=== PATIENT | female | born 1950 | race Caucasian/White ===

== ENCOUNTER 2023-07-22 06:56 | Day surgery (SDC) | payer MEDICARE, BC, SELFPAY ==
[2023-07-22] VITALS (29 sets, daily range): BP systolic 104–155; BP diastolic 56–92; PULSE 54–73; RESP 16–20; TEMP 35.8–37.2; O2SAT 89–97; BMI 39.6
[2023-07-22] MEDS: LACTATED RINGERS 1000 ML 1,000 ML 100 ML IV (07:30)
--- NOTE | 2023-07-22 07:30 | XR_ITS ---
Patient: ABRAHAM TOLEDO Facility:?[facility] Patient ID:?[id number] Site Patient ID:?[id number]. Site :?[id number] Study:?XRay-Knee Left POST OP-07/22/2023 12:05:46 PM Ordering Physician:TOSHIA Final Report: Indication: Postop Technique: Two views right knee Findings/Impression: Hardware from a right total knee arthroplasty is in satisfactory position. Bone alignment is normal. No sign of acute fracture. Postop changes are within normal limits. Dictated by Leonidas Ennis MD @ 07/22/2023 12:34:30 PM Signed by:?Leonidas Ennis MD @07/22/2023 12:34:30 PM (Electronic Signature)
[2023-07-22] MEDS: OXYCODONE (CR) 10 MG TAB.ER.12H PO (07:35)
[2023-07-22] MEDS: ACETAMINOPHEN 500 MG TABLET 1000 MG PO ×3 (07:35→20:52)
[2023-07-22] MEDS: fentaNYL 100 MCG/2 ML inj IVP (08:14)
[2023-07-22] MEDS: MIDAZOLAM HCL 1 MG/ML inj IVP (08:14)
--- NOTE | 2023-07-22 08:15 | SUR.PREOP ---
TIME?OUT:?812 PT/Maggie Ibanez RN/Dr. Amandeep MDA?VERIFICATION?OF?SURGICAL?SITE left knee,?PROCEDURE,?AND?CONSENT OBTAINED?PRIOR?TO?INVASIVE?PROCEDURE.
--- NOTE | 2023-07-22 09:06 | W.PM.NB ---
Nerve Block Nerve Block Time Seen by Provider: 08:16 Date Seen: 07/22/23 Type of block requested by surgeon for post-operative analgesia: adductor canal Side: left Time out performed: Yes Verification of patient name: Yes Verification of date of : Yes Site marking: site marked Name of person performing procedure: Amandeep Continuous monitoring Was continuous monitoring of O2 sat, B/P, cardiac monitor technician, recorded every 15 minutes?: Yes Procedure Checklist: sterile prep, needles and gloves Ultrasound guided. Images saved: Yes Medications given in 5ml increments after negative aspiration: Ropivicaine %: 0.5 mL: 20 Needle gauge: 20 Decadron (mg): 10 Precedex (mcg): 25 Patient tolerated procedure well: Yes Additional comments: Needle noted adjacent to nerve Block Charges Block Charge (with Pro Fee): Femoral Nerve Use of Ultrasound Machine for Block: Yes- US Guidance/pain block
--- NOTE | 2023-07-22 09:07 | W.PM.NB ---
Nerve Block Nerve Block Time Seen by Provider: 08:16 Date Seen: 07/22/23 Type of block requested by surgeon for post-operative analgesia: geniculars Side: left Time out performed: Yes Verification of patient name: Yes Verification of date of : Yes Site marking: site marked Name of person performing procedure: Amandeep Continuous monitoring Was continuous monitoring of O2 sat, B/P, soil specialist, recorded every 15 minutes?: Yes Procedure Checklist: sterile prep, needles and gloves Medications given in 5ml increments after negative aspiration: Ropivicaine %: 0.5 mL: 9 Needle gauge: 25 Patient tolerated procedure well: Yes Block Charges Block Charge (with Pro Fee): Genicular Nerve Block Use of Ultrasound Machine for Block: No
--- NOTE | 2023-07-22 09:07 | W.ANESCHARGE ---
Anesthesia Charges Start Date/Time Anesthesia Start Date: 07/22/23 Anesthesia Start Time: 09:11 Stop Date/Time Anesthesia Stop Date: 07/22/23 Anesthesia Stop Time: 11:46 Summary Extremes of Age - Over 70 or under 1: MDA
--- NOTE | 2023-07-22 09:24 | W.PM.H&PU ---
History & Physical Update History & Physical Update H&P Reviewed and patient assessed: No changes noted
[2023-07-22] MEDS: CEFAZOLIN 2 GM in 0.9 % SODIUM CHLORIDE Mini-bag 100 ML IVPB ×3 (09:25→23:05)
[2023-07-22] MEDS: TRANEXAMIC ACID 100 MG/ML INJ 1000 MG IV (09:25)
--- NOTE | 2023-07-22 11:13 | P.ORPRC_ITS ---
Procedure Note Date of procedure: 07/22/23 Procedure: PREOPERATIVE DIAGNOSIS: 1. Left knee osteoarthritis, primary, severe 2. Morbid obesity-BMI 39.7 POSTOPERATIVE DIAGNOSIS: 1. Left knee osteoarthritis, primary, severe 2. Morbid obesity-BMI 39.7 PROCEDURE: 1. Left total knee arthroplasty (subvastus approach) - modifier 22 (33% at a time to this case due to increased body mass as well as very soft bone requiring stemmed tibial component which added time and preparation and needed more retractors and assistance for completion of the procedure safely). SURGEON: Javier Reyes MD. BASEBALL UMPIRE FOR [employer]: CHRISTINE Salinas - Of note, a skilled technical staff assistant was critical for this case to aid in patient positioning, tissue retraction, limb manipulation/positioning, and closure. ANESTHESIA: Spinal anesthetic EBL: 50ml IMPLANTS: DePuy J&J all cemented TKA - Attune PS femur size 7, size 6 stemmed tibia (30 mm length stem), 5 mm poly spacer, 38 mm patella TOURNIQUET: 90 min at 300 torr COMPLICATIONS: None evident INDICATIONS: The patient is a pleasant 72-year-old female who has experienced severe left knee pain and difficulty bearing weight. Workup included x-rays which revealed severe osteoarthrosis in the knee. Given the deformity, the dysfunction, and the pain, as well as the failure of nonoperative management, recommendation was made for surgery. FINDINGS: Full-thickness chondral loss diffusely throughout the medial and patellofemoral compartments. To a lesser degree lateral compartment. Degenerative meniscus pathology. Large effusion upon entering the joint. DESCRIPTION OF PROCEDURE: Following a thorough discussion of risks, benefits, and alternatives consent was obtained and the left knee was marked. The patient was brought to the operating room and placed supine on the operating table. Induction of anesthesia was undertaken. 2 g IV Ancef and 1 g tranexamic acid was administered within 1 hr of incision preoperatively. Proper time-out was performed identifying proper patient, site, procedure. The operative extremity was prepped and draped in the appropriate sterile fashion using ChloraPrep after the patient was positioned supine with all bony prominences well padded. A longitudinal, anterior, midline skin incision was made starting approximately 3cm proximal to the superior pole of the patella and advanced distal to the tibial tubercle. A median parapatellar arthrotomy was created. A medial subperiosteal sleeve was created with knife, yuen elevator and curved osteotome. The retropatellar fatpad was resected and the synovium in the suprapatellar pouch excised to visualize the anterior femoral cortex. Femoral preparation was performed via an intramedullary guide. Step drill allowed access into the femoral canal. The distal cutting guide was placed with 5? of valgus and 11 mm cut on the distal femur due to a 7-10 degree flexion contracture. Femur was sized using a posterior referencing guide in 3? of external rotation. This found have a best fit with the sizing noted above. The 4 in 1 cutting block was then placed, and the distal femur shaped accordingly. The box cut was then created and the trial implant inserted to confirm appropriate fit. We turned our attention to the proximal tibia. Extramedullary guide was utilized for cutting with the goal of being 90 degree cut from the mechanical axis of the tibia in the varus/valgus plane utilizing tibial crest as the primary alignment. Initially a 1 mm resection was performed from the medial tibial plateau. An additional 2 mm did require resection to achieve proper gaps. Ultimately, balancing was achieved in both flexion and extension in both varus and valgus. Of note, the bone was extremely soft and even the cortical rim was somewhat of an egg shell. As such, a tibial stem was added to aid in stability of the tibial implant, and this was also utilized given the increased patient's body mass 0 (BMI 39.7). The knee was able to achieve full extension as well comfortably. The patella was initially measured and found have a thickness of 26 mm. It was resected back to approximately 16 mm. It was sized to be a best fit with as noted above. This was drilled, trial placed. All trials were placed and found to have an excellent stability and balance. At this stage, trial implants were removed, the knee was thoroughly irrigated with normal saline, and the cement was mixed. After irrigation, the knee was thoroughly dried, and cement placed, with the real tibial and femoral implants placed along with the patella. Trial poly spacer was placed and confirmed to have excellent range of motion and full extension, and the real poly spacer opened and inserted. All extra cement was removed, and a 3 min Betadine soak performed. Finally, a final irrigation round with normal saline was performed. Closure performed with 0 PDS and #0 Stratafix for the quad tendon/retinaculum. 2-0 Vicryl/Stratafix for the subcutaneous and 4-0 Monocryl for subcuticular closure. Dressings were applied and the patient was awoken from anesthesia after the tourniquet deflated and transferred the PACU in stable condition. A skilled technical staff assistant was critical for this case to aid in patient positioning, ti ssue retraction, bone exposure, limb manipulation/positioning, patient safety, and closure. * again, 33% at a time to this case due to increased body mass as well as very soft bone requiring stemmed tibial component which added time and preparation and needed more retractors and assistance for completion of the procedure safely PLAN: 1. Weight bear as tolerated operative extremity. 2. 23 hr perioperative antibiotics. 3. Ice. 4. PT/OT consults for ambulation assistance/mobility education. 5. Social work consult for discharge planning. 6. DVT prophylaxis with at SCDs, Vahe Hose, and aspirin twice daily.
--- NOTE | 2023-07-22 11:38 | SUR.OPER ---
Skin under tourniquet looks bruised on medial thigh
[2023-07-22] MEDS: fentaNYL 100 MCG/2 ML inj 50 MCG IVP ×2 (11:53→12:08)
--- NOTE | 2023-07-22 11:54 | W.ANESCHARGE ---
Anesthesia Charges Start Date/Time Anesthesia Start Date: 07/22/23 Anesthesia Start Time: 09:11 Stop Date/Time Anesthesia Stop Date: 07/22/23 Anesthesia Stop Time: 11:46
--- NOTE | 2023-07-22 11:58 | SUR.PHASEI ---
xray here for ap/lat left knee
--- NOTE | 2023-07-22 13:30 | PM.IMCN1 ---
Date of Consult Patient: [facility] Patient Consult date: 07/22/23 Requesting Physician: Orthopedics Primary Care Provider: Enid Carr MD Consult Narrative Reason for consult: Medical management Narrative: Kaylen Reilly is a 72 year old female past medical history significant for osteoarthritis, lumbar degenerative disc disease, obesity, GERD, hyperlipidemia, neuropathy is POD#0 s/p left total knee arthroplasty. Postoperative pain is currently well controlled. Has been struggling with her low back pain and unable to get comfortable. Receive fentanyl in the PACU and no has some mild dizziness which is improving. Also had some mild nausea which has resolved. Tolerating sips and chips. There have been no perioperative complications or nursing concerns reported. Estimated total blood loss documented as 50 ml. Updated and reviewed the active medical problems, past medical history, past surgical history, social history, allergies and medications in our electronic EMR. Review of Systems Narrative: REVIEW OF SYSTEMS: Complete review of systems performed and negative unless otherwise stated in HPI or below. PFSH [facility] Medical History (Updated 07/22/23 @ 14:24 by Nelia Silva PA-C) Lower extremity neuropathy ?G57.90 - Unspecified mononeuropathy of unspecified lower limb (ICD-10) Hyperlipidemia ?E78.5 - Hyperlipidemia, unspecified (ICD-10) Obesity ?E66.9 - Obesity, unspecified (ICD-10) Neuropathy of both feet ?G57.93 - Unspecified mononeuropathy of bilateral lower limbs (ICD-10) Endometriosis ?N80.9 - Endometriosis, unspecified (ICD-10) GERD (gastroesophageal reflux disease) ?K21.9 - Gastro-esophageal reflux disease without esophagitis (ICD-10) Surgical History History of bilateral oophorectomy ?Z90.722 - Acquired absence of ovaries, bilateral (ICD-10) History of breast biopsy ?Z98.890 - Other specified postprocedural states (ICD-10) S/P right knee arthroscopy (~1989) ?Z98.890 - Other specified postprocedural states (ICD-10) S/P appendectomy ?Z90.49 - Acquired absence of other specified parts of digestive tract (ICD-10) 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) ?Z96.642 - Presence of left artificial hip joint (ICD-10) Social History What is your current living situation?: I presently have a place to live Problems where you live: no known problems Smoking Status: Never smoker Do you use any of these nicotine containing products: None How often do you have a drink containing alcohol: never AUDIT-C Alcohol total score: 0 Non-prescribed substance use: denies use Caffeine: Yes (pepsi daily) How often does anyone, including family, friends and others, physically hurt you: never How often does anyone, including family, friends and others, insult or talk down to you: never How often does anyone, including family, friends and others, threaten you with harm: never How often does anyone, including family, friends and others, scream or curse at you: never service: No Meds Home Medications and Allergies Home Medications Medication Instructions Recorded Confirmed Type atorvastatin 40 mg tablet 40 mg PO HS 10/30/22 07/22/23 History magnesium oxide 400 mg (241.3 mg 400 mg PO DAILY 10/30/22 07/22/23 History magnesium) tablet naproxen sodium 220 mg capsule 220 mg PO BID PRN 10/30/22 07/22/23 History (Aleve) pantoprazole 40 mg tablet,delayed 40 mg PO DAILY 04/23/23 07/22/23 History release pregabalin 150 mg capsule (Lyrica) 150 mg PO BID 04/23/23 07/22/23 History Allergies Allergy/AdvReac Type Severity Reaction Status Date / Time No Known Drug Allergies Allergy Verified 07/22/23 07:14 Exam Narrative: Exam Narrative: PHYSICAL EXAM General: Pleasant, conversant, NAD HEENT: Normocephalic, atraumatic, sclera white, EOMI, oral mucosa moist Cardiovascular: RRR, S1S2. No pitting edema Pulmonary: CTA bilaterally without rhonchi, rales, expiratory wheezes. No dyspnea Abdominal: Soft, nondistended, NTTP Neurological: Alert, answering questions appropriately, cranial nerves intact, no focal findings Extremities: No gross joint deformity or swelling. Postoperative dressing in place, dry. Neurovascularly intact Skin: Warm, dry. Const: Vital Signs, click to edit/add: Vital Signs - 24 hr 07/22/23 08:03 07/22/23 08:15 07/22/23 08:20 Temperature 98.3 F Pulse Rate 68 71 64 Respiratory Rate 16 16 16 Blood Pressure 127/69 144/72 H 141/70 H Pulse Oximetry 97 97 93 Oxygen Delivery Me thod Room Air Nasal Cannula Nasal Cannula Oxygen Flow Rate 2 2 07/22/23 08:30 07/22/23 08:45 07/22/23 11:42 Temperature 98.3 F 97.5 F L Pulse Rate 62 58 L 69 Respiratory Rate 16 16 16 Blood Pressure 112/60 104/69 135/71 Pulse Oximetry 97 96 94 Oxygen Delivery Me thod Nasal Cannula Nasal Cannula Room Air Oxygen Flow Rate 2 2 07/22/23 11:45 07/22/23 11:50 07/22/23 11:55 Temperature Pulse Rate 64 63 61 Respiratory Rate 16 16 16 Blood Pressure 123/67 136/86 135/74 Pulse Oximetry 94 95 95 Oxygen Delivery Me thod Room Air Room Air Room Air Oxygen Flow Rate 07/22/23 12:00 07/22/23 12:05 07/22/23 12:10 Temperature Pulse Rate 67 66 55 L Respiratory Rate 16 16 16 Blood Pressure 130/77 142/76 H 138/81 Pulse Oximetry 95 93 95 Oxygen Delivery Me thod Room Air Room Air Room Air Oxygen Flow Rate 07/22/23 12:15 Temperature 97.7 F Pulse Rate 54 L Respiratory Rate 16 Blood Pressure 134/91 H Pulse Oximetry 95 Oxygen Delivery Me thod Room Air Oxygen Flow Rate Assessment and Plan Assessment and plan (1) Osteoarthritis of left knee: Problem comment: -POD#0 s/p L VICTORIANO -perioperative management including pain management and anticoagulation per Orthopedic surgery -encourage postoperative pulmonary hygiene -PT OT consults -plan to discharge home with spouse tomorrow Status: Acute (2) Lumbar degenerative disc disease: Problem comment: most severe at L5-S1 -pain management to include ice and/or heat, lidocaine patch, Tylenol, narcotics p.r.n.. Repositioning, ambulating when able Status: Acute (3) GERD (gastroesophageal reflux disease): Problem comment: -PPI Status: Acute (4) Hyperlipidemia: Problem comment: -statin Status: Acute (5) Lower extremity neuropathy: Problem comment: -Lyrica Status: Acute Plan Hospital medicine team will sign off. Please contact our service with any questions or concerns. Total Time Spent Total Time Spent: Total time spent caring for the patient today was 45 minutes. This includes time spent for the visit reviewing the chart, time spent during the visit, time spent after the visit and documentation and planning in coordination of care.
[2023-07-22] MEDS: LIDOCAINE 5% PATCH 1 PATCH TRANSDERMA (14:26)
[2023-07-22] MEDS: ONDANSETRON 2 MG/ML inj 4 MG IVP (14:26)
[2023-07-22] MEDS: OXYCODONE 5 MG TABLET PO ×2 (16:07→23:11)
--- NOTE | 2023-07-22 19:42 | PC.NURSE ---
shift note: pt to rm 256 via bed. pt states chronic back pain 07/20 upon arrival. pt repositioned intermittently to assist with lower back pain. pt up to recliner with Phy therapist this afternoon. drsg to lt l/e c/d/i with active ice in place. PP+ bilat. post op vss stable. pt voided x3. LS clr. IS to 2500. IV patent.
[2023-07-22] MEDS: SENNOSIDES 1 TAB TABLET 2 TAB PO (20:52)
[2023-07-22] MEDS: PREGABALIN 75 MG CAPSULE 150 MG PO (20:53)
[2023-07-22] MEDS: ATORVASTATIN CALCIUM 40 MG TABLET PO (20:53)
[2023-07-22] MEDS: ASPIRIN 81 MG TABLET EC PO (20:53)
[2023-07-23] MEDS: ACETAMINOPHEN 500 MG TABLET 1000 MG PO ×2 (01:22→08:39)
[2023-07-23] MEDS: OXYCODONE 5 MG TABLET PO ×3 (01:22→10:54)
[2023-07-23 01:31] VITALS: BP 136/65; PULSE 87; RESP 20; TEMP 36.6; O2SAT 93
--- NOTE | 2023-07-23 04:59 | PC.NURSE ---
[id number]: Patient pleasant and cooperative. Walk halls x2. Rates pain 4-6/10 with PRN Oxycodone for relief. Denies N/V. Active ice to L. knee. Dressing C/D/I. CMS intact. Eating and voiding.
[2023-07-23 06:26] LABS: Hematocrit 37.9 % (33.0-51.0); Hemoglobin* 12.1 gm/dL (12.0-16.0); Immature Granulocytes Pct Auto 0.1 %; Lymphocytes Percent Auto 7.3 % (20-44); Mean Corpuscular HGB Conc 32 gm/dL (32-36); Mean Corpuscular Hemoglobin 30 pg (26-34); Mean Corpuscular Volume 92 fL (80-100); Monocytes Percent Auto 10.4 % (0.0-11.0); Neutrophils Percent Auto 82.2 % (42.0-72.0); Platelet Count* 211 K/uL (140-440); RDW Coefficient of Variation % 12.3 % (11.5-15.5); White Blood Count* 12.02 K/uL (4.50-11.00)
[2023-07-23] MEDS: OMEPRAZOLE 20 MG CAPSULE DR 40 MG PO (06:28)
[2023-07-23 06:31] LABS: Slide Review Reflex No
[2023-07-23 06:37] LABS: Potassium* 4.4 mmol/L (3.6-5.1); Sodium* 137 mmol/L (135-149)
[2023-07-23 06:40] LABS: Blood Urea Nitrogen* 19 mg/dL (7-30); Creatinine* 0.8 mg/dL (0.5-1.5); Est. Creatinine Clearance* 52.05; Estimated Glomerular Filt Rate 79 ml/min
[2023-07-23 07:00] VITALS: O2SAT 95
[2023-07-23] MEDS: CEFAZOLIN 2 GM in 0.9 % SODIUM CHLORIDE Mini-bag 100 ML IVPB (07:00)
[2023-07-23] MEDS: PREGABALIN 75 MG CAPSULE 150 MG PO (08:39)
[2023-07-23] MEDS: MAGNESIUM OXIDE 400 MG TABLET PO (08:39)
[2023-07-23] MEDS: ASPIRIN 81 MG TABLET EC PO (08:39)
[2023-07-23 08:42] VITALS: BP 108/49; PULSE 64; RESP 18; TEMP 36.6; O2SAT 95
[2023-07-23] MEDS: SENNOSIDES 1 TAB TABLET 2 TAB PO (09:25)
--- NOTE | 2023-07-23 12:25 | PM.ORPN ---
Subjective Subjective Date Seen: 07/23/23 Principal diagnosis: Status postop day 1 left total knee arthroplasty Interval history: Patient reports feeling quite dizzy. Denies photophobia, head spinning, vertigo, ear pain, sinus pain, or nausea/vomiting. Mild headache. The symptoms of dizziness started after her 10 mg oxycodone provide this morning around 0630 (07/23/2023). Pain managed with scheduled and PRN medications, ice. DVT prophylaxis: 81 mg aspirin by mouth twice daily, bilateral knee high Vahe stockings, SCDs, walking. Denies fevers, chills, aches, N/V, CP, SOB/VITALE. She denies being lightheaded. Ortho Exam Narrative Exam Narrative: -Patient appears comfortable; no apparent acute distress. She appears irritated with the dizziness. -Alert and oriented times 3 -Operative knee mildly swollen; soft tissues supple; no ecchymosis; no erythematous streaking Warmth appropriate -Surgical dressing clean, dry, intact; no drainage -Bilateral calfs soft; no significant swelling, edema, tenderness, erythema, discoloration, warmth, or palpable cords -2+ DP/PT pulses, intact dermatomes and myotomes distally (5/5 strength) Const Vital Signs, click to edit/add: Vital Signs - 24 hr 07/22/23 12:30 07/22/23 12:35 07/22/23 12:45 Temperature 96.5 F L 96.5 F L 96.5 F L Pulse Rate 61 62 Pulse Rate [Pulse Oximeter] Respiratory Rate 16 16 16 Blood Pressure 145/78 H 154/80 H Blood Pressure [Right Arm] 145/78 H Pulse Oximetry 93 93 92 Oxygen Delivery Method Room Air Room Air Room Air Oxygen Flow Rate 07/22/23 13:00 07/22/23 13:15 07/22/23 13:30 Temperature 96.5 F L 96.7 F L 96.5 F L Pulse Rate 62 59 L 59 L Pulse Rate [Pulse Oximeter] Respiratory Rate 16 16 16 Blood Pressure 154/80 H 142/74 H 146/75 H Blood Pressure [Right Arm] Pulse Oximetry 91 97 92 Oxygen Delivery Method Room Air Room Air Room Air Oxygen Flow Rate 2 07/22/23 14:00 07/22/23 15:00 07/22/23 15:00 Temperature 96.5 F L 96.5 F L Pulse Rate 59 L 59 L Pulse Rate [Pulse Oximeter] Respiratory Rate 16 16 Blood Pressure 155/81 H 141/73 H Blood Pressure [Right Arm] Pulse Oximetry 91 91 89 Oxygen Delivery Method Room Air Room Air Oxygen Flow Rate 07/22/23 16:00 07/22/23 17:00 07/22/23 18:00 Temperature 96.5 F L 97.7 F 97.8 F Pulse Rate 59 L 59 L 62 Pulse Rate [Pulse Oximeter] Respiratory Rate 16 16 16 Blood Pressure 130/64 124/56 L 105/80 Blood Pressure [Right Arm] Pulse Oximetry 92 93 90 Oxygen Delivery Method Room Air Room Air Room Air Oxygen Flow Rate 07/22/23 19:31 07/22/23 20:21 07/22/23 22:06 Temperature 96.5 F L 98.9 F Pulse Rate 59 L Pulse Rate [Pulse Oximeter] 72 Respiratory Rate 16 20 Blood Pressure 142/92 H Blood Pressure [Right Arm] 128/62 Pulse Oximetry 91 95 95 Oxygen Delivery Method Room Air Nasal Cannula Oxygen Flow Rate 2.0 07/22/23 23:05 07/22/23 23:07 07/23/23 01:31 Temperature 98.3 F 98.3 F 97.8 F Pulse Rate Pulse Rate [Pulse Oximeter] 73 72 87 Respiratory Rate 18 20 Blood Pressure Blood Pressure [Right Arm] 118/58 L 136/65 Pulse Oximetry 95 93 Oxygen Delivery Method Room Air Room Air Oxygen Flow Rate 07/23/23 08:42 Temperature 98 F Pulse Rate Pulse Rate [Pulse Oximeter] 64 Respiratory Rate 18 Blood Pressure Blood Pressure [Right Arm] 108/49 L Pulse Oximetry 95 Oxygen Delivery Method Room Air Oxygen Flow Rate Assessment and Plan Assessment and plan (1) Status post left knee replacement: Problem details: POD 1 left TKA Status: Acute (2) Nonspecific dizziness: Problem details: Procedure well with therapy without issue; this is believed to be oxycodone adverse reaction Status: Acute Plan - Complete 23 hour perioperative antibiotics. - PT/OT consult for education and assistance. - Social work consult for discharge planning - Prescribed analgesics as needed - advised that the best for her to limit the use of 10 mg oxycodone at 1 time - DVT prophylaxis: 81 mg aspirin by mouth twice daily, bilateral knee high Vahe Hose stockings and SCDs - Anticipation is for discharge to home with spouse 07/23/2023 if the patient remains medically stable, pain is controlled, and they are safe with mobilization.
--- NOTE | 2023-07-23 12:57 | PC.NURSE ---
shift note: pt medicated for 6 lt knee pain with releief. 2 ice paks, another freida of yessy socks and slippers sent with pt at dc. lt knee incision c/d/i. skin around incision flesh tone and slightly swollen. PP+ bilat. pt has hx neuropathy bilat l/e. IV dc'd intact. Reviewed dc instructions and copies sent with pt. Belongings reviewed and sent with pt at pa.
== END 2023-07-23 10:30 | disposition home or self-care (01) ==
LOC: OR 06:57 → MEDSURG 07:01
PROVIDERS: PCP Family Medicine; Visit Provider Orthopaedic Surgery Sports Medicine
PROC: (CPT 27447; principal; 2023-07-22 09:00)
DX: M17.12 Unilateral primary osteoarthritis, left knee (principal); G89.18 Other acute postprocedural pain; E66.01 Morbid (severe) obesity due to excess calories; Z68.39 Body mass index [BMI] 39.0-39.9, adult; G57.90 Unspecified mononeuropathy of unspecified lower limb; R42 Dizziness and giddiness; K21.9 Gastro-esophageal reflux disease without esophagitis; M51.36 Other intervertebral disc degeneration, lumbar region; E78.5 Hyperlipidemia, unspecified
CPT/HCPCS: 27447; 01402; 36415; 64447; 64454; 73560; 76942; 82565; 84132; 84295; 84520; 85025; 97110; 97116; 97161; 97165; 97535; 99100; A9270; C1776; J0690; J1100; J2250; J2405; J2704; J2795; J3010; J7120

== ENCOUNTER 2024-03-09 10:49 | Day surgery (SDC) | payer MEDICARE, BC, SELFPAY ==
[2024-03-09] VITALS (26 sets, daily range): BP systolic 107–182; BP diastolic 52–80; PULSE 50–83; RESP 14–20; TEMP 35.5–36.6; O2SAT 94–100; BMI 38.1
[2024-03-09] MEDS: SODIUM CHLORIDE 0.9 % (FLUSH) 10 ML SYRINGE IVF (11:27)
[2024-03-09] MEDS: OXYCODONE (CR) 10 MG TAB.ER.12H PO (11:27)
[2024-03-09] MEDS: ACETAMINOPHEN 500 MG TABLET 1000 MG PO ×2 (11:27→18:34)
[2024-03-09] MEDS: 0.9 % SODIUM CHLORIDE 500 ML 500 ML 100 ML IV ×2 (12:00→15:33)
[2024-03-09] MEDS: fentaNYL 100 MCG/2 ML inj IVP (12:05)
[2024-03-09] MEDS: MIDAZOLAM HCL 1 MG/ML inj IVP (12:05)
--- NOTE | 2024-03-09 12:13 | SUR.PREOP ---
TIME?OUT:1205 PT/RN/MDA?VERIFICATION?OF?SURGICAL?SITE Right Knee,?PROCEDURE Nerve Block,?AND?CONSENT OBTAINED?PRIOR?TO?INVASIVE?PROCEDURE.
[2024-03-09] MEDS: CEFAZOLIN 2 GM in 0.9 % SODIUM CHLORIDE Mini-bag 100 ML IVPB ×2 (12:30→18:35)
[2024-03-09] MEDS: TRANEXAMIC ACID 100 MG/ML INJ 1000 MG IV (12:35)
--- NOTE | 2024-03-09 12:40 | CRLHL7_ITS ---
For Patients: As a result of the Cures Act, medical imaging exams and procedure reports are released immediately into your electronic medical record. You may view this report before your referring provider. If you have questions, please contact your health care provider. Indication: Postop TKA Technique: Two views right knee Findings/Impression: Hardware from a right total knee arthroplasty is in satisfactory position. Bone alignment is normal. No sign of acute fracture. Postop changes are within normal limits. Dictated by Leonidas Ennis MD @ 03/10/2024 9:51:01 AM (Electronically Signed)
--- NOTE | 2024-03-09 13:04 | W.PM.NB ---
Nerve Block Nerve Block Time Seen by Provider: 12:08 Date Seen: 03/09/24 Type of block requested by surgeon for post-operative analgesia: adductor canal Side: right Time out performed: Yes Verification of patient name: Yes Verification of date of : Yes Site marking: site marked Name of person performing procedure: Amandeep Continuous monitoring Was continuous monitoring of O2 sat, B/P, environmental monitoring specialist, recorded every 15 minutes?: Yes Procedure Checklist: sterile prep, needles and gloves Ultrasound guided. Images saved: Yes Medications given in 5ml increments after negative aspiration: Marcaine %: 0.25 mL: 15 Needle gauge: 20 Precedex (mcg): 25 Patient tolerated procedure well: Yes Block Charges Block Charge (with Pro Fee): Femoral Nerve Use of Ultrasound Machine for Block: Yes- US Guidance/pain block
--- NOTE | 2024-03-09 13:05 | W.PM.NB ---
Nerve Block Nerve Block Time Seen by Provider: 12:08 Date Seen: 03/09/24 Type of block requested by surgeon for post-operative analgesia: geniculars Side: right Time out performed: Yes Verification of patient name: Yes Verification of date of : Yes Site marking: site marked Name of person performing procedure: Amandeep Continuous monitoring Was continuous monitoring of O2 sat, B/P, director of cardiac rehabilitation, recorded every 15 minutes?: Yes Procedure Checklist: sterile prep, needles and gloves Ultrasound guided. Images saved: Yes Medications given in 5ml increments after negative aspiration: Marcaine %: 0.25 mL: 9 Needle gauge: 25 Patient tolerated procedure well: Yes Block Charges Block Charge (with Pro Fee): Genicular Nerve Block
--- NOTE | 2024-03-09 13:05 | W.ANESCHARGE ---
Anesthesia Charges Start Date/Time Anesthesia Start Date: 03/09/24 Anesthesia Start Time: 12:19 Stop Date/Time Anesthesia Stop Date: 03/09/24 Anesthesia Stop Time: 15:10 Summary Extremes of Age - Over 70 or under 1: MDA
--- NOTE | 2024-03-09 14:15 | PM.ORPRC ---
Procedure Note Date of procedure: 03/09/24 Procedure: PREOPERATIVE DIAGNOSIS: 1. Right knee osteoarthritis, primary, severe 2. Obesity (BMI 38.2) POSTOPERATIVE DIAGNOSIS: 1. Right knee osteoarthritis, primary, severe 2. Obesity (BMI 38.2) PROCEDURE: 1. Right total knee arthroplasty - subvastus; of note, 25% added time and difficulty for this case due to the patient's increased body mass (BMI 38.2) which warranted a stemmed tibial component both because of sub par bone quality on tibial side as well as increased body mass so as to help improve the longevity. SURGEON: Javier Reyes MD. [employer] ATTENDANT: Fabián Olivera PA-C - Of note, a skilled seed analysis laboratory assistant was critical for this case to aid in patient positioning, tissue retraction, limb manipulation/positioning, and closure. ANESTHESIA: Spinal anesthetic IMPLANTS: DePuy J&J all cemented TKA - Attune PS femur size 7, size 6 stemmed (50mm) tibia, 5 mm poly spacer, 38 mm patella TOURNIQUET: 90 min at 300 torr EBL: 50 ml COMPLICATIONS: None evident INDICATIONS: The patient is a pleasant 73-year-old female who has experienced severe right knee pain and difficulty bearing weight. Workup included x-rays which revealed severe osteoarthrosis in the knee. Given the deformity, the dysfunction, and the pain, as well as the failure of nonoperative management, recommendation was made for surgery. FINDINGS: Full-thickness chondral loss diffusely throughout the medial compartment. To slightly lesser degree lateral and patellofemoral compartment chondromalacia. Degenerative meniscus pathology both compartments. Large effusion upon entering the joint. Large tricompartmental osteophytes. DESCRIPTION OF PROCEDURE: Following a thorough discussion of risks, benefits, and alternatives consent was obtained and the right knee was marked. The patient was brought to the operating room and placed supine on the operating table. Induction of anesthesia was undertaken. 2 g IV Ancef and 1 g tranexamic acid was administered within 1 hr of incision preoperatively. Proper time-out was performed identifying proper patient, site, procedure. The operative extremity was prepped and draped in the appropriate sterile fashion using ChloraPrep after the patient was positioned supine with all bony prominences well padded. A longitudinal, anterior, midline skin incision was made starting approximately 3cm proximal to the superior pole of the patella and advanced distal to the tibial tubercle. A subvastus approach was utilized. A medial subperiosteal sleeve was created with knife, yuen elevator and curved osteotome. The retropatellar fatpad was resected and the synovium in the suprapatellar pouch excised to visualize the anterior femoral cortex. Femoral preparation was performed via an intramedullary guide. Step drill allowed access into the femoral canal. The distal cutting guide was placed with 5? of valgus and 12 mm cut on the distal femur due to a 15 degree flexion contracture. Femur was sized using a posterior referencing guide in 3? of external rotation. This found have a best fit with the sizing noted above. The 4 in 1 cutting block was then placed, and the distal femur shaped accordingly. The box cut was then created and the trial implant inserted to confirm appropriate fit. We turned our attention to the proximal tibia. Extramedullary guide was utilized for cutting with the goal of being 90 degree cut from the mechanical axis of the tibia in the varus/valgus plane utilizing tibial crest as the primary alignment. Initially a 2 mm resection was performed from the medial tibial plateau. Ultimately, balancing was achieved in both flexion and extension in both varus and valgus. The knee was able to achieve full extension as well comfortably. Of note, a stem was utilized on the tibial component due to combination of increased body mass (BMI 30.2) and poor bone quality. The patella was initially measured and found have a thickness of 27 mm. It was resected back to approximately 14.5 mm. It was sized to be a best fit with as noted above. This was drilled, trial placed. All trials were placed and found to have an excellent stability and balance. At this stage, trial implants were removed, the knee was thoroughly irrigated with normal saline, and the cement was mixed. After irrigation, the knee was thoroughly dried, and cement placed, with the real tibial and femoral implants placed along with the patella. Trial poly spacer was placed and confirmed to have excellent range of motion and full extension, and the real poly spacer opened and inserted. All extra cement was removed, and a 3 min Betadine soak performed. Finally, a final irrigation round with normal saline was performed. Closure performed with 0 Vicryl and #0 Stratafix for the quad tendon/retinaculum. 2-0 Vicryl for the subcutaneous and 4-0 Stratafix for subcuticular closure. Dressings were applied and the patient was awoken from anesthesia after the tourniquet deflated and transferred the PACU in stable condition. A skilled seed analysis laboratory assistant was critical for this case to aid in patient positioning, tissue retraction, bone exposure, limb manipulation/positioning, patient safety, and closure. *Again, 25% added time and difficulty for this case due to the patient's increased body mass (BMI 38.2) which warranted a stemmed tibial component both because of sub par bone quality on tibial side as well as increased body mass so as to help improve the longevity. PLAN: 1. Weight bear as tolerated operative extremity. 2. 23 hr perioperative antibiotics. 3. Ice. 4. PT/OT consults for ambulation assistance/mobility education. 5. Social work consult for discharge planning. 6. DVT prophylaxis with at SCDs and aspirin twice daily.
--- NOTE | 2024-03-09 15:13 | W.ANESCHARGE ---
Anesthesia Charges Start Date/Time Anesthesia Start Date: 03/09/24 Anesthesia Start Time: 12:19 Stop Date/Time Anesthesia Stop Date: 03/09/24 Anesthesia Stop Time: 15:10
[2024-03-09] MEDS: fentaNYL 100 MCG/2 ML inj 50 MCG IVP (15:25)
[2024-03-09] MEDS: HYDROmorphone 0.5 mg/0.5 ml inj IVP ×2 (16:13→17:07)
--- NOTE | 2024-03-09 16:43 | P.IMCN_ITS ---
Date of Consult Patient: Other Consult date: 03/09/24 Requesting Physician: Orthopedics Primary Care Provider: Enid Carr MD Consult Narrative Reason for consult: hyperlipidemia Narrative: Kaylen Reilly is a 73 year old female with h/o neuropathy, lumbar degenerative disc disease, obesity, hyperlipidemia and GERD who underwent an div right total knee arthroplasty by Dr. Reyes today for severe osteoarthritis. She is known to us from a right total knee arthroplasty in July of this year. She had some nonspecific dizziness thought to be secondary to oxycodone at that time. She arrived to the floor today after surgery feeling short of breath and complaining of post neck pain. I was called into the room and immediately went to see her. Both of these symptoms resolved very quickly. She was tearful and said that when she arrived to the room and started to feel short of breath, no one was in there and she panicked. She has a continuous pulse ox on her finger and it has consistently read 100% on room air with good waveform. She denies chest pain. I spoke with Anesthesia. She had spinal anesthesia with no respiratory manipulation or instruments. EBL was 50 mL and there were no evident complications intraoperatively. Review of Systems Status of ROS: Reports: 6 or more systems reviewed and unremarkable except as noted in History and below [facility] Medical History (Updated 03/09/24 @ 17:05 by Terese Webber MD) Nonspecific dizziness ?R42 - Dizziness and giddiness (ICD-10) Lumbar degenerative disc disease ?M51.36 - Other intervertebral disc degeneration, lumbar region (ICD-10) Osteoarthritis of right knee ?M17.11 - Unilateral primary osteoarthritis, right knee (ICD-10) Lower extremity neuropathy ?G57.90 - Unspecified mononeuropathy of unspecified lower limb (ICD-10) Hyperlipidemia ?E78.5 - Hyperlipidemia, unspecified (ICD-10) Obesity ?E66.9 - Obesity, unspecified (ICD-10) Neuropathy of both feet ?G57.93 - Unspecified mononeuropathy of bilateral lower limbs (ICD-10) Endometriosis ?N80.9 - Endometriosis, unspecified (ICD-10) GERD (gastroesophageal reflux disease) ?K21.9 - Gastro-esophageal reflux disease without esophagitis (ICD-10) Surgical History (Updated 03/09/24 @ 17:04 by Terese Webber MD) Status post total right knee replacement ?Z96.651 - Presence of right artificial knee joint (ICD-10) Status post left knee replacement (07/22/23) ?Z96.652 - Presence of left artificial knee joint (ICD-10) History of total left knee replacement (07/22/23) ?Z96.652 - Presence of left artificial knee joint (ICD-10) History of bilateral oophorectomy ?Z90.722 - Acquired absence of ovaries, bilateral (ICD-10) History of breast biopsy ?Z98.890 - Other specified postprocedural states (ICD-10) S/P right knee arthroscopy (~1989) ?Z98.890 - Other specified postprocedural states (ICD-10) S/P appendectomy ?Z90.49 - Acquired absence of other specified parts of digestive tract (ICD- 10) 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 with her today. No tobacco or alcohol use. What is your current living situation?: I presently have a place to live Problems where you live: no known problems Problems where you live details: na In the past 12 months, utilities in danger of being shut off: no In past 12 months, lack of transportation kept you from medical appts, meetings, work, or getting things needed for daily living: no In the past 12 mos, have been you worried that your food would run out before you had money to buy more?: never true In the past 12 mos, the food you bought just didn't last and you didn't have money to buy more?: never true Smoking Status: Never smoker Do you use any of these nicotine containing products: None How often do you have a drink containing alcohol: never AUDIT-C Alcohol total score: 0 Non-prescribed substance use: denies use Caffeine: No How often does anyone, including family, friends and others, physically hurt you : never How often does anyone, including family, friends and others, insult or talk down to you: never How often does anyone, including family, friends and others, threaten you with harm: never How often does anyone, including family, friends and others, scream or curse at you: never service: No Meds Home Medications and Allergies Home Medications ?Medication ?Instructions ?Recorded ?Confirmed ?Type atorvastatin 40 mg tablet 40 mg PO HS 10/30/22 03/09/24 History pantoprazole 40 mg tablet,delayed 40 mg PO DAILY 04/23/23 03/09/24 History release pregabalin 150 mg capsule (Lyrica) 150 mg PO BID 04/23/23 03/09/24 History cholecalciferol (vitamin D3) 25 1,000 unit PO DAILY 09/06/23 03/09/24 History mcg (1,000 unit) capsule (Vitamin D3) [id number] tablet 1 tab PO DAILY 09/06/23 03/09/24 History Allergies Allergy/AdvReac Type Severity Reaction Status Date / Time No Known Drug Allergies Allergy Verified 03/09/24 10:56 Exam Narrative: Exam Narrative: General: Tearful. No respiratory distress. Continuous pulse oximeter has a good waveform; she is at 100% on room air. Awake alert oriented x3. Obese. HEENT: Normocephalic atraumatic, pupils equally round and reactive to light and accommodation. Mallampati 1. Oropharynx clear. Mucous membranes are moist. Thick neck. No cervical lymphadenopathy, thyromegaly or carotid bruits. No JVD. Cardiovascular: Regular rate and rhythm. No murmurs, gallops, or rubs. Chest: No increased work of breathing. Occasional upper airway sounds. Clear to auscultation bilaterally. No crackles or wheezes. Abdomen: Bowel sounds present. Soft, nondistended, nontender. No hepatosplenomegaly or masses. Extremities: No edema, no cyanosis or clubbing. Right knee dressing is clean, dry, and intact. Skin: No jaundice, no pallor, no rashes. Neuro: Grossly intact. No focal deficits. Const: Vital Signs, click to edit/add: Vital Signs - 24 hr 03/09/24 11:05 03/09/24 12:05 03/09/24 12:10 Temperature 97.7 F Pulse Rate 72 70 71 Respiratory Rate 16 16 16 Blood Pressure 117/68 144/76 H 135/76 Pulse Oximetry 99 99 99 Oxygen Delivery Me thod Room Air Nasal Cannula Nasal Cannula Oxygen Flow Rate 2 2 03/09/24 15:05 03/09/24 15:10 03/09/24 15:15 Temperature 97.3 F L Pulse Rate 74 71 76 Respiratory Rate 16 18 14 Blood Pressure 119/65 113/70 107/73 Pulse Oximetry 94 95 96 Oxygen Delivery Me thod Room Air Room Air Room Air Oxygen Flow Rate 03/09/24 15:20 03/09/24 15:25 03/09/24 15:30 Temperature 97.4 F L Pulse Rate 71 64 63 Respiratory Rate 16 16 18 Blood Pressure 112/75 117/71 112/73 Pulse Oximetry 95 97 96 Oxygen Delivery Me thod Room Air Room Air Room Air Oxygen Flow Rate 03/09/24 15:35 03/09/24 15:40 03/09/24 16:37 Temperature 97.4 F L Pulse Rate 68 62 Respiratory Rate 16 16 Blood Pressure 120/70 124/70 Pulse Oximetry 98 96 100 Oxygen Delivery Me thod Room Air Room Air Oxygen Flow Rate Assessment and Plan Assessment and plan (1) Status post total right knee replacement: Problem comment: - 03/09/2024 Dr. Reyes - routine postop cares - VTE prophylaxis with twice a day a dose aspirin - incentive spirometry - PT and OT consult Status: Acute (2) Osteoarthritis of right knee: Problem comment: Severe, [id number] Status: Chronic (3) Obesity: Problem comment: 09/06/2023 BMI 38.0 12/31/2023 BMI 38.7 03/09/2024 BMI 38.2 Status: Chronic (4) Hyperlipidemia: Problem comment: - Continue statin Status: Chronic (5) Lower extremity neuropathy: Problem comment: - Continue Lyrica Status: Chronic (6) GERD (gastroesophageal reflux disease): Problem comment: - Continue PPI Status: Acute
[2024-03-09] MEDS: ONDANSETRON 2 MG/ML inj 4 MG IVP (17:49)
--- NOTE | 2024-03-09 18:41 | CRLHL7_ITS ---
For Patients: As a result of the Century Cures Act, medical imaging exams and procedure reports are released immediately into your electronic medical record. You may view this report before your referring provider. If you have questions, please contact your health care provider. INDICATION: Shortness of breath, dyspnea, post op. TECHNIQUE: Chest 1 view. COMPARISON: None. FINDINGS: No focal consolidation, pleural effusion, or pneumothorax. Bilateral linear perihilar atelectasis. Normal heart size and pulmonary vascularity. The bones are unremarkable. IMPRESSION: No acute cardiopulmonary findings. Dictated by Priscila Crespo MD @ 03/09/2024 8:48:53 PM (Electronically Signed)
[2024-03-09 19:09] LABS: HCO3 VBG 27 mmol/L (21-28); PCO2 VBG 55 mmHG (40-50); PO2 VBG < 30.1 mmHG (25-47)
[2024-03-09 19:10] LABS: Basophils Percent Auto 0.2 % (0.0-3.0); Eosinophils Percent Auto 0.3 % (0.0-7.0); Hematocrit 41.5 % (33.0-51.0); Hemoglobin* 13.2 gm/dL (12.0-16.0); Immature Granulocytes Pct Auto 0.2 %; Lymphocytes Percent Auto 12.4 % (20-44); Mean Corpuscular HGB Conc 32 gm/dL (32-36); Mean Corpuscular Hemoglobin 31 pg (26-34); Mean Corpuscular Volume 97 fL (80-100); Monocytes Percent Auto 7.1 % (0.0-11.0); Neutrophils Percent Auto 79.8 % (42.0-72.0); Platelet Count* 177 K/uL (140-440); RDW Coefficient of Variation % 12.1 % (11.5-15.5)
[2024-03-09 19:14] LABS: Slide Review Reflex No
[2024-03-09 19:27] LABS: Chloride* 104 mmol/L (96-114); Potassium* 3.6 mmol/L (3.6-5.1); Sodium* 139 mmol/L (135-149)
[2024-03-09 19:29] LABS: Creatinine* 0.9 mg/dL (0.5-1.5); Estimated Glomerular Filt Rate 68 ml/min
[2024-03-09 19:30] LABS: Anion Gap 9 mEq/L (7-15); Blood Urea Nitrogen* 19 mg/dL (7-30); Calcium* 9.1 mg/dL (8.4-10.6); Carbon Dioxide* 26 mmol/L (20-32); Glucose* 172 mg/dL (60-115)
--- NOTE | 2024-03-09 19:53 | CRLHL7_ITS ---
For Patients: As a result of the Cures Act, medical imaging exams and procedure reports are released immediately into your electronic medical record. You may view this report before your referring provider. If you have questions, please contact your health care provider. INDICATION: Vomiting, post surg TKA. COMPARISON: None. TECHNIQUE: Abdomen 1 view. FINDINGS: The pelvis is excluded from the field of view and there is artifact over the left abdomen. No dilated bowel loops within the field of view. Mild amount of stool in the visualized colon. No free air under the hemidiaphragms. The bones are unremarkable. IMPRESSION: Limited exam. No dilated bowel loops. Dictated by Priscila Crespo MD @ 03/09/2024 8:51:51 PM (Electronically Signed)
--- NOTE | 2024-03-09 20:06 | PC.NURSE ---
shift note: pt to room from pacu @ 1550 via bed. Pt weepy and expressing inablitity to breath. Dr. Webber notified and Lloyd FINK notified of pt status. sats 100% with rr=16 even. pt appeared pink in complexion. Dr. Webber assessed with DANAE. No orders at this time. pt medicated x2 for rt knee pain with relief. pt had emesis x2 100cc each time of green bile. pt medicated x1 with zofran with minimal relief. Pt @ 1830 called staff to room c/o feeling chilled. Pt started shaking suddenly. vss 152/62 p=59 s=99 t=96.5 temporal RR=20. lips and u/e nailbeds dusky. u/e cool to touch. Dr. Webber notified and assessed pt. Orders for VBG,chest & abd xray and EKG.
[2024-03-09 20:13] LABS: Troponin I* < 0.01 ng/mL (0.01-0.04)
[2024-03-09] MEDS: LACTATED RINGERS 1000 ML 1,000 ML 75 ML IV (20:16)
[2024-03-09] MEDS: PROCHLORPERAZINE 5 MG/ML VIAL 10 MG IV (20:16)
[2024-03-09] MEDS: OXYCODONE 5 MG TABLET PO (22:05)
[2024-03-09] MEDS: SENNOSIDES 1 TAB TABLET 2 TAB PO (22:05)
[2024-03-09] MEDS: ASPIRIN 81 MG TABLET EC PO (22:06)
[2024-03-09] MEDS: PREGABALIN 75 MG CAPSULE 150 MG PO (22:06)
[2024-03-09] MEDS: ATORVASTATIN CALCIUM 40 MG TABLET PO (22:06)
[2024-03-10] MEDS: ACETAMINOPHEN 500 MG TABLET 1000 MG PO ×2 (00:06→06:10)
[2024-03-10] MEDS: LORazepam 0.5 MG TABLET PO (00:07)
[2024-03-10] MEDS: OXYCODONE 5 MG TABLET PO ×3 (02:34→08:51)
[2024-03-10] MEDS: CEFAZOLIN 2 GM in 0.9 % SODIUM CHLORIDE Mini-bag 100 ML IVPB ×2 (02:34→11:03)
[2024-03-10 02:37] VITALS: BP 116/71; PULSE 85; RESP 16; TEMP 36.9; O2SAT 92
[2024-03-10 06:30] LABS: Basophils Absolute Auto 0.02 K/uL (0.00-0.30); Basophils Percent Auto 0.2 % (0.0-3.0); Hematocrit 38.8 % (33.0-51.0); Hemoglobin* 12.2 gm/dL (12.0-16.0); Immature Granulocytes Abs Auto 0.01 K/uL (0.00-0.30); Immature Granulocytes Pct Auto 0.1 %; Lymphocytes Percent Auto 5.8 % (20-44); Mean Corpuscular HGB Conc 31 gm/dL (32-36); Mean Corpuscular Hemoglobin 31 pg (26-34); Mean Corpuscular Volume 97 fL (80-100); Neutrophils Percent Auto 82.9 % (42.0-72.0); Platelet Count* 198 K/uL (140-440); RDW Coefficient of Variation % 12.4 % (11.5-15.5); White Blood Count* 9.82 K/uL (4.50-11.00)
[2024-03-10 06:32] LABS: Slide Review Reflex No
--- NOTE | 2024-03-10 06:40 | PC.NURSE ---
Pt alert and oriented x3. Afebrile. Pt reports 3/10 pain in right knee, pain managed with scheduled and PRN medications. Pt's right knee dressing is CDI Pt is up A1 with walker and gait belt, voiding, and tolerating a regular diet.
[2024-03-10 06:55] LABS: Sodium* 136 mmol/L (135-149)
[2024-03-10 06:56] LABS: Potassium* 4.2 mmol/L (3.6-5.1)
[2024-03-10 06:59] LABS: Blood Urea Nitrogen* 20 mg/dL (7-30); Creatinine* 0.9 mg/dL (0.5-1.5); Estimated Glomerular Filt Rate 68 ml/min
[2024-03-10 08:21] VITALS: BP 118/59; PULSE 79; RESP 16; TEMP 36.8; O2SAT 95
[2024-03-10] MEDS: ASPIRIN 81 MG TABLET EC PO (08:51)
[2024-03-10] MEDS: MULTIVITAMIN/MINERALS 1 TABLET 1 TAB PO (08:51)
[2024-03-10] MEDS: SENNOSIDES 1 TAB TABLET 2 TAB PO (08:51)
[2024-03-10] MEDS: OMEPRAZOLE 20 MG CAPSULE DR 40 MG PO (08:52)
[2024-03-10] MEDS: PREGABALIN 75 MG CAPSULE 150 MG PO (08:52)
--- NOTE | 2024-03-10 10:21 | PM.ORPN ---
Subjective Subjective Date Seen: 03/10/24 Principal diagnosis: Status postop day 1 right total knee arthroplasty Interval history: Patient reports doing better this morning. Better appetite. No further nausea/vomiting. Reports that she just is not able to get up and move compared to when she had her left knee replaced a few months ago. She is unsure if she will be able to go home. Pain managed with scheduled and PRN medications, ice. DVT prophylaxis: 81 mg aspirin by mouth twice daily, SCDs, walking. Denies fevers, chills, aches, N/V, CP, SOB/VITALE, or lightheadedness. Ortho Exam Narrative Exam Narrative: -Patient appears comfortable; no apparent acute distress. She is eating breakfast. Swelling, conversing normally -Alert and oriented times 3 -Operative knee moderately swollen; soft tissues supple; no ecchymosis; no erythematous streaking Warmth appropriate -Surgical dressing clean, dry, intact; no drainage -Bilateral calfs soft; no significant swelling, edema, tenderness, erythema, discoloration, warmth, or palpable cords -2+ DP/PT pulses, intact dermatomes and myotomes distally (5/5 strength) Const Vital Signs, click to edit/add: Vital Signs - 24 hr 03/09/24 11:05 03/09/24 12:05 03/09/24 12:10 Temperature 97.7 F Pulse Rate 72 70 71 Pulse Rate [Pulse Oximeter] Respiratory Rate 16 16 16 Blood Pressure 117/68 144/76 H 135/76 Blood Pressure [Left Arm] Pulse Oximetry 99 99 99 Oxygen Delivery Method Room Air Nasal Cannula Nasal Cannula Oxygen Flow Rate 2 2 03/09/24 15:05 03/09/24 15:10 03/09/24 15:15 Temperature 97.3 F L Pulse Rate 74 71 76 Pulse Rate [Pulse Oximeter] Respiratory Rate 16 18 14 Blood Pressure 119/65 113/70 107/73 Blood Pressure [Left Arm] Pulse Oximetry 94 95 96 Oxygen Delivery Method Room Air Room Air Room Air Oxygen Flow Rate 03/09/24 15:20 03/09/24 15:25 03/09/24 15:30 Temperature 97.4 F L Pulse Rate 71 64 63 Pulse Rate [Pulse Oximeter] Respiratory Rate 16 16 18 Blood Pressure 112/75 117/71 112/73 Blood Pressure [Left Arm] Pulse Oximetry 95 97 96 Oxygen Delivery Method Room Air Room Air Room Air Oxygen Flow Rate 03/09/24 15:35 03/09/24 15:40 03/09/24 15:50 Temperature 97.4 F L 95.9 F L Pulse Rate 68 62 56 L Pulse Rate [Pulse Oximeter] Respiratory Rate 16 16 16 Blood Pressure 120/70 124/70 131/54 L Blood Pressure [Left Arm] Pulse Oximetry 98 96 98 Oxygen Delivery Method Room Air Room Air Room Air Oxygen Flow Rate 03/09/24 15:50 03/09/24 15:53 03/09/24 16:00 Temperature 95.9 F L 95.9 F L 95.9 F L Pulse Rate 56 L 50 L Pulse Rate [Pulse Oximeter] 56 L Respiratory Rate 16 16 16 Blood Pressure 131/64 142/73 H Blood Pressure [Left Arm] 131/64 Pulse Oximetry 98 100 100 Oxygen Delivery Method Room Air Room Air Room Air Oxygen Flow Rate 03/09/24 16:15 03/09/24 16:30 03/09/24 16:37 Temperature 95.9 F L 96.2 F L Pulse Rate 57 L 52 L Pulse Rate [Pulse Oximeter] Respiratory Rate 16 16 Blood Pressure 142/73 H 131/67 Blood Pressure [Left Arm] Pulse Oximetry 100 100 Oxygen Delivery Method Room Air Room Air Oxygen Flow Rate 03/09/24 16:45 03/09/24 17:00 03/09/24 17:30 Temperature 96.2 F L 96.2 F L 97 F L Pulse Rate 57 L 65 59 L Pulse Rate [Pulse Oximeter] Respiratory Rate 16 16 16 Blood Pressure 158/77 H 182/80 H 152/52 H Blood Pressure [Left Arm] Pulse Oximetry 99 99 99 Oxygen Delivery Method Room Air Room Air Room Air Oxygen Flow Rate 2 03/09/24 18:30 03/09/24 19:30 03/09/24 20:30 Temperature 96.5 F L 97.4 F L Pulse Rate 59 L 79 83 Pulse Rate [Pulse Oximeter] Respiratory Rate 20 18 18 Blood Pressure 152/62 H 136/78 122/59 L Blood Pressure [Left Arm] Pulse Oximetry 99 95 94 Oxygen Delivery Method Room Air Room Air Room Air Oxygen Flow Rate 03/09/24 21:30 03/09/24 23:04 03/09/24 23:55 Temperature 97.8 F 97.8 F Pulse Rate 74 Pulse Rate [Pulse Oximeter] 74 Respiratory Rate 20 20 Blood Pressure 121/56 L Blood Pressure [Left Arm] 121/56 L Pulse Oximetry 96 96 94 Oxygen Delivery Method Room Air Room Air Oxygen Flow Rate 03/09/24 23:55 03/09/24 23:55 03/10/24 02:37 Temperature 98.5 F Pulse Rate Pulse Rate [Pulse Oximeter] 76 85 Respiratory Rate 18 16 Blood Pressure Blood Pressure [Left Arm] 116/71 Pulse Oximetry 94 92 Oxygen Delivery Method Room Air Room Air Oxygen Flow Rate 03/10/24 08:21 03/10/24 08:21 03/10/24 08:21 Temperature 98.2 F Pulse Rate Pulse Rate [Pulse Oximeter] 79 Respiratory Rate 16 16 Blood Pressure Blood Pressure [Left Arm] 118/59 L Pulse Oximetry 95 95 95 Oxygen Delivery Method Room Air Room Air Oxygen Flow Rate Assessment and Plan Assessment and plan (1) Status post total right knee replacement: Problem details: - 03/09/2024 Dr. Reyes - routine postop cares - VTE prophylaxis with twice a day 81mg aspirin - incentive spirometry - PT and OT consult Status: Acute (2) Osteoarthritis of right knee: Problem details: Severe, [id number] Status: Chronic (3) Obesity: Problem details: 09/06/2023 BMI 38.0 12/31/2023 BMI 38.7 03/09/2024 BMI 38.2 Status: Chronic (4) Hyperlipidemia: Problem details: - Continue statin Status: Chronic (5) Lower extremity neuropathy: Problem details: - Continue Lyrica Status: Chronic (6) GERD (gastroesophageal reflux disease): Problem details: - Continue PPI Status: Acute Plan - Complete 23 hour perioperative antibiotics. - PT/OT consult for education and assistance. - Social work consult for discharge planning - Prescribed analgesics as needed - DVT prophylaxis: 81 mg aspirin by mouth twice daily, walking, and SCDs - Anticipation is for discharge to home with family/friends today 03/10/2024 if the patient remains medically stable, pain is controlled, and they are safe with mobilization. I do believe that patient will meet all these criteria for discharge today, 03/10/2024
--- NOTE | 2024-03-10 12:21 | PC.SOCIAL ---
Discharge planning: Social work sales intern completed discharge planning assessment with pt and pt's . Pt is her own decision maker and understands reason for being in the hospital. She is not receiving any homecare services currently, but states they have used [facility] in the past. Pt lives in [place] with in a split-level house. There are 7 stairs to enter. They have a daughter in [place] and a son in [place] who both have full-time jobs. No mental health needs were identified. will transport pt home. Pt is in agreement with going home and having her take care of her. She does state concern about the steps and will see physical therapy once more before D/C. Social work sales intern gave pt document on community resources upon discharge. Pt has social work number and knows that she can call at any time with questions. Social work to follow up as needed.
== END 2024-03-10 12:49 | disposition home or self-care (01) ==
LOC: OR 10:54 → MEDSURG 10:57
PROVIDERS: Family Medicine; PCP Family Medicine; Visit Provider Orthopaedic Surgery Sports Medicine
PROC: (CPT 27447; principal; 2024-03-09 12:30)
DX: M17.11 Unilateral primary osteoarthritis, right knee (principal); G89.18 Other acute postprocedural pain; E66.9 Obesity, unspecified; Z68.38 Body mass index [BMI] 38.0-38.9, adult; R94.31 Abnormal electrocardiogram [ECG] [EKG]; E78.5 Hyperlipidemia, unspecified; K21.9 Gastro-esophageal reflux disease without esophagitis; M51.369 Other intervertebral disc degeneration, lumbar region without mention of lumbar back pain or lower extremity pain; G57.93 Unspecified mononeuropathy of bilateral lower limbs
CPT/HCPCS: 27447; 01402; 36415; 64447; 64454; 71045; 73560; 74018; 76942; 80048; 82565; 82803; 84132; 84295; 84484; 84520; 85025; 93005; 97110; 97116; 97161; 97165; 97530; 97535; 99100; A9153; A9270; C1776; J0665; J0690; J0780; J1171; J2250; J2405; J2704; J3010; J7030; J7120

== ENCOUNTER 2025-01-26 09:02 | Outpatient (CLI) | payer MEDICARE, BC, SELFPAY ==
--- NOTE | 2025-01-26 09:15 | MR_ITS ---
[address] [address] Phone:?[phone] Fax:?[phone] Referring Physician Information: Javier Reyes M.D. [id number] [facility] [address] Phone:?[phone] Fax:?[phone] Patient:Jordon Reilly D.O.B:?1950 Sex:?Female Phone:?[phone] [facility] MRN:?[id number] Exam Date:?01/26/2025 EXAM: MRI EXAMINATION OF THE RIGHT SHOULDER CLINICAL INFORMATION: Right shoulder pain. No history of surgery to this area. Evaluate rotator cuff tear. TECHNICAL INFORMATION: Axial coronal PD and PD fat saturation. Coronal T2. Sagittal T2 and T2 fat saturation images acquired. Correlation is made with February 10, 2012. INTERPRETATION: Bones: There is no Hill-Sachs impaction deformity. Mild osseous cystic changes alongside the AC joint. No other bone marrow edema pattern. Rotator Cuff: There are mild changes of supraspinatus tendinopathy without a more discrete tendon tear. The infraspinatus tendon is intact without tear or significant tendinopathy. The teres minor tendon is intact. The subscapularis tendon is intact. No evidence for rotator cuff muscle belly atrophy or edema signal. Coracoacromial arch: There is no discrete subacromial osseous spur. The bony acromiohumeral interval is measuring 6 mm. There is no thickening identified of the coracoacromial ligament. Acromioclavicular joint: Marked AC joint DJD. Undersurface spurring and minimal underlying supraspinatus deformity. Mild thickening and edema signal involves the subacromial/deltoid bursa areas. Biceps tendon: The long head biceps tendon is intact and nondisplaced from the bicipital groove. No evidence for a tendon tear or any appreciable changes of tendinopathy. Glenohumeral joint and labrum: No significant glenohumeral joint effusion. No discrete loose body within the joint. Osteochondral surfaces appear relatively preserved. Fraying/mild tearing involves the base of the superior labrum. There is tearing which appears to continue involving the superior posterior labrum. No discrete paralabral cyst is identified. CONCLUSION: 1. Mild supraspinatus tendinopathy. No discrete partial or full-thickness rotator cuff tendon tear. 2. Marked AC joint DJD with minimal underlying supraspinatus deformity. 3. Mild narrowing of the acromiohumeral interval. Mild subacromial/subdeltoid bursitis. 4. Unremarkable and intact long head biceps tendon. 5. No evidence for glenohumeral chondromalacia or joint effusion. 6. Fraying/mild tearing of the superior labrum. Tear appears to involve the superior posterior labrum. No paralabral cyst. KES Electronically signed on 01/26/2025 11:00:00 AM by Roel Santana M.D.
== END 2025-01-26 09:03 | disposition home or self-care (01) ==
LOC: MRI 09:05
PROVIDERS: PCP Family Medicine; Visit Provider Orthopaedic Surgery Sports Medicine
DX: M25.511 Pain in right shoulder (principal); M75.101 Unspecified rotator cuff tear or rupture of right shoulder, not specified as traumatic; M75.51 Bursitis of right shoulder; S43.431A Superior glenoid labrum lesion of right shoulder, initial encounter
CPT/HCPCS: 73221